=== PATIENT | male | born 1980 | race African-American/Black ===

== ENCOUNTER 2019-09-14 18:48 | Emergency (ER) | payer SELFPAY ==
[~2019-09-14] VITALS: Ht 185.4 cm; Wt 88.5 kg
[2019-09-14] MEDS ORDERED: TAMIFLU 75MG CA75 MG PO (19:46)
== END 2019-09-14 20:00 | disposition home or self-care (01) ==
LOC: ED 18:48
DX: J10.1 Influenza due to other identified influenza virus with other respiratory manifestations (principal); R19.7 Diarrhea, unspecified

== ENCOUNTER 2021-06-16 16:26 | Emergency (ER) | payer OTHER ==
[~2021-06-16] VITALS: Ht 185.4 cm; Wt 104.3 kg
[~2021-06-16 16:26] MED LIST: TAMIFLU 75MG CA75 MG PO
[2021-06-16] MEDS ORDERED: NAPROSYN500 MG PO (21:29)
== END 2021-06-16 22:00 | disposition home or self-care (01) ==
LOC: ED 16:26
DX: S50.11XA Contusion of right forearm, initial encounter (principal); W18.39XA Other fall on same level, initial encounter; Y93.89 Activity, other specified; Y92.89 Other specified places as the place of occurrence of the external cause; Y99.8 Other external cause status